=== PATIENT | female | born 1945 | race Caucasian/White ===

== ENCOUNTER 2019-03-13 16:26 | Inpatient (IN) | payer MEDICARE, MEDICAID ==
[~2019-03-13] VITALS: Ht 167.6 cm; Wt 141.1 kg
[~2019-03-13 16:26] MED LIST: AMLO10TA80 PO; ASPI-1158 PO; LISI10TA5 PO; Meclizine PO
[2019-03-13 18:03] LABS: BASOPHILS % 0.6 % (0.0-2.0); EOSINOPHILS % 4.3 % (0.0-5.0); HEMATOCRIT. 48.3 % (36.0-48.0); HEMOGLOBIN. 16.3 g/dL (12.0-16.0); MEAN CORPUSCULAR HEMOGLOBIN 30.8 pg (28.0-32.0); MEAN CORPUSCULAR VOLUME 91.2 fL (81.0-99.0); MEAN PLATELET VOLUME 9.1 fl (7.4-10.4); MONOCYTES % 4.7 % (2.0-8.0); NEUTROPHILS % 63.4 % (40.0-76.0); PLATELET 265 x1000/uL (130-400)
[2019-03-13 18:06] LABS: CHLORIDE 106 mEq/L (98-107)
[2019-03-13 20:33] LABS: CLARITY URINE CLOUDY (CLEAR); COLOR URINE DARK YELLOW (YELLOW); KETONES URINE TRACE (NEGATIVE); LEUKOCYTE ESTERASE URINE 2+ (NEGATIVE); NITRITE URINE POSITIVE (NEGATIVE); OCCULT BLOOD URINE TRACE (NEGATIVE); PROTEIN URINE 1+ (NEGATIVE)
[2019-03-14 03:00] VITALS: BP 181/127
[2019-03-14] MEDS ORDERED: GUAIFENESIN 200MG/10ML SUGAR FREE UDC PO PRN (03:30)
[2019-03-14] MEDS ORDERED: ONDANSETRON HCL 4MG/2ML INJ IV PRN (03:30)
[2019-03-14] MEDS ORDERED: ACETAMINOPHEN 325MG TABLET PO PRN (03:30)
[2019-03-14] MEDS ORDERED: DOCUSATE SODIUM 100MG CAPSULE PO PRN (03:30)
[2019-03-14] MEDS ORDERED: MAGNESIUM/ALUMINUM HYDROXIDE/SIMETHICONE 30ML UDC PO PRN (03:30)
[2019-03-14] MEDS ORDERED: LEVOFLOXACIN 500MG PREMIX 100 ML IV SCH (03:30)
[2019-03-14] MEDS: LEVOFLOXACIN 500MG PREMIX 100 ML IV SCH (05:49)
[2019-03-14 08:00] VITALS: BP 90/70
[2019-03-14] MEDS: ASPIRIN 81MG EC TABLET PO SCH (09:50)
[2019-03-14] MEDS: ENOXAPARIN 40MG/0.4ML SYR SUBCUT SCH ×2 (09:51→21:11)
[2019-03-14] MEDS: AMLODIPINE 10MG TABLET PO SCH (09:57)
[2019-03-14] MEDS ORDERED: ALBUTEROL (0.5%) 2.5MG/0.5ML NEB HHN PRN (10:00)
[2019-03-14] MEDS ORDERED: ALBUTEROL 6.7GM HFA INHALER ORI PRN (10:00)
[2019-03-14] MEDS ORDERED: SODIUM POLYSTYRENE SULFONATE 15 G/60 ML BOT PO SCH (11:00)
[2019-03-14] MEDS ORDERED: DEXTROSE 50% WATER 50ML SYRINGE IV PRN (11:15)
[2019-03-14] MEDS: CLONIDINE 0.1MG TABLET PO PRN ×2 (11:21→23:14)
[2019-03-14] MEDS: BLOOD SUGAR DIAGNOSTIC STRIP TEST SCH ×3 (11:48→21:10)
[2019-03-14] MEDS: INSULIN LISPRO 100 UNITS/ML SUBCUT SCH ×3 (11:48→21:00)
[2019-03-14 12:40] VITALS: BP 163/102
[2019-03-14 16:19] VITALS: BP 157/108
[2019-03-14 16:29] LABS: CHLORIDE 109 mEq/L (98-107)
[2019-03-14] MEDS: HYDRALAZINE HCL 10MG TABLET PO SCH ×2 (17:03→23:13)
[2019-03-14] MEDS: HYDROCODONE/ACETAMINOPHEN 5/325MG TABLET PO PRN (17:04)
[2019-03-14 20:00] VITALS: BP 150/87
[2019-03-15] VITALS: BP 155/105
[2019-03-15 04:00] VITALS: BP 136/88
[2019-03-15 05:42] LABS: BASOPHILS % 0.6 % (0.0-2.0); EOSINOPHILS % 4.3 % (0.0-5.0); HEMATOCRIT. 45.9 % (36.0-48.0); HEMOGLOBIN. 15.3 g/dL (12.0-16.0); LYMPHOCYTES % 28.1 % (20.0-50.0); MEAN CORPUSCULAR HEMOGLOBIN 30.8 pg (28.0-32.0); MEAN CORPUSCULAR VOLUME 92.4 fL (81.0-99.0); MEAN PLATELET VOLUME 8.3 fl (7.4-10.4); MONOCYTES % 8.1 % (2.0-8.0); NEUTROPHILS % 58.9 % (40.0-76.0); PLATELET 193 x1000/uL (130-400); RED BLOOD CELL COUNT 4.97 mill/uL (4.2-5.4); RED CELL DISTRIBUTION WIDTH 14.4 % (11.6-14.6)
[2019-03-15 06:15] LABS: CHLORIDE 107 mEq/L (98-107)
[2019-03-15] MEDS: HYDRALAZINE HCL 10MG TABLET PO SCH ×3 (06:16→21:38)
[2019-03-15] MEDS: CLONIDINE 0.1MG TABLET PO PRN ×2 (06:16→23:52)
[2019-03-15] MEDS: LEVOFLOXACIN 500MG PREMIX 100 ML IV SCH (06:17)
[2019-03-15] MEDS: BLOOD SUGAR DIAGNOSTIC STRIP TEST SCH ×4 (06:28→21:37)
[2019-03-15] MEDS: HYDROCODONE/ACETAMINOPHEN 5/325MG TABLET PO PRN ×2 (06:29→23:50)
[2019-03-15 06:30] LABS: LDL CHOLESTEROL 98 mg/dL (5-100)
[2019-03-15 06:32] LABS: HDL CHOLESTEROL 46 mg/dL (40-59)
[2019-03-15] MEDS: INSULIN LISPRO 100 UNITS/ML SUBCUT SCH ×4 (06:50→21:00)
[2019-03-15 08:00] VITALS: BP_SYST 110
[2019-03-15] MEDS: ASPIRIN 81MG EC TABLET PO SCH (08:32)
[2019-03-15] MEDS: ENOXAPARIN 40MG/0.4ML SYR SUBCUT SCH ×2 (08:32→21:37)
[2019-03-15] MEDS: AMLODIPINE 10MG TABLET PO SCH (08:32)
[2019-03-15 12:00] VITALS: BP 126/78
[2019-03-15 16:00] VITALS: BP 131/88
[2019-03-15 20:00] VITALS: BP 145/94
[2019-03-16] VITALS: BP 170/89
[2019-03-16 04:00] VITALS: BP 133/82
[2019-03-16] MEDS: LEVOFLOXACIN 500MG PREMIX 100 ML IV SCH (05:35)
[2019-03-16] MEDS: HYDRALAZINE HCL 10MG TABLET PO SCH ×3 (05:35→21:20)
[2019-03-16] MEDS: HYDROCODONE/ACETAMINOPHEN 5/325MG TABLET PO PRN ×2 (05:37→22:23)
[2019-03-16] MEDS: BLOOD SUGAR DIAGNOSTIC STRIP TEST SCH ×4 (06:22→20:44)
[2019-03-16] MEDS: INSULIN LISPRO 100 UNITS/ML SUBCUT SCH ×4 (06:50→21:00)
[2019-03-16] MEDS: ASPIRIN 81MG EC TABLET PO SCH (10:01)
[2019-03-16] MEDS: AMLODIPINE 10MG TABLET PO SCH (10:02)
[2019-03-16] MEDS: ENOXAPARIN 40MG/0.4ML SYR SUBCUT SCH ×2 (10:02→21:21)
[2019-03-16 12:00] VITALS: BP 147/80
[2019-03-16 16:00] VITALS: BP 163/85
[2019-03-16 16:54] VITALS: BP_SYST 112; BP_SYST 132; BP_DIAS 76; BP_DIAS 78
[2019-03-16 20:00] VITALS: BP 137/95
[2019-03-17] VITALS: BP 133/80
[2019-03-17 04:00] VITALS: BP 162/96
[2019-03-17] MEDS: BLOOD SUGAR DIAGNOSTIC STRIP TEST SCH ×2 (06:09→12:10)
[2019-03-17] MEDS: INSULIN LISPRO 100 UNITS/ML SUBCUT SCH ×2 (06:18→12:40)
[2019-03-17] MEDS: HYDRALAZINE HCL 10MG TABLET PO SCH ×2 (06:18→13:29)
[2019-03-17 08:00] VITALS: BP 150/93
[2019-03-17] MEDS: AMLODIPINE 10MG TABLET PO SCH (09:06)
[2019-03-17] MEDS: ENOXAPARIN 40MG/0.4ML SYR SUBCUT SCH (09:06)
[2019-03-17] MEDS: ASPIRIN 81MG EC TABLET PO SCH (09:06)
[2019-03-17] MEDS: HYDROCODONE/ACETAMINOPHEN 5/325MG TABLET PO PRN (09:09)
[2019-03-17] MEDS ORDERED: LEVOFLOXACIN 500MG TABLET PO SCH (11:00)
[2019-03-17 12:00] VITALS: BP 128/79
== END 2019-03-17 15:40 | disposition home health service (06) | DRG 69 ==
LOC: ER 16:26 → 8WST 22:36 → EDBEDREQTM 22:39 → EDBEDREQ 22:39 → ENRESERV 03-14 00:50
PROVIDERS: ADMIT Hospitalist; ATTEND Hospitalist
DX: G45.9 Transient cerebral ischemic attack, unspecified (principal); N39.0 Urinary tract infection, site not specified; E44.1 Mild protein-calorie malnutrition; Z68.43 Body mass index [BMI] 50.0-59.9, adult; I10 Essential (primary) hypertension; J44.9 Chronic obstructive pulmonary disease, unspecified; E87.5 Hyperkalemia; E66.01 Morbid (severe) obesity due to excess calories; E11.9 Type 2 diabetes mellitus without complications; M19.90 Unspecified osteoarthritis, unspecified site; Z79.82 Long term (current) use of aspirin; Z79.899 Other long term (current) drug therapy
CPT/HCPCS: 36415; 80048; 80061; 81003; 82962; 83036; 84484; 87077; 87186; 93005; 93970; 96365; 97162; 99285; J1650; J1956; J7040

== ENCOUNTER 2019-05-13 13:27 | Emergency (ER) | payer MEDICARE, MEDICAID ==
[~2019-05-13] VITALS: Ht 170.2 cm; Wt 135.0 kg
[2019-05-13] MEDS ORDERED: ONDANSETRON HCL 4MG/2ML INJ IV STA (14:05)
[2019-05-13] MEDS ORDERED: SODIUM CHLORIDE 0.9% 1,000 ML IV ONE (14:05)
[2019-05-13] MEDS ORDERED: KETOROLAC 30MG/ML VIAL IV STA (14:05)
[2019-05-13] MEDS ORDERED: MAGNESIUM CITRATE 300ML SOLUTION PO ONE (14:15)
[2019-05-13 14:57] LABS: BASOPHILS % 0.3 % (0.0-2.0); CHLORIDE 105 mEq/L (98-107); EOSINOPHILS % 1.3 % (0.0-5.0); HEMATOCRIT. 50.7 % (36.0-48.0); HEMOGLOBIN. 16.8 g/dL (12.0-16.0); LYMPHOCYTES % 11.8 % (20.0-50.0); MEAN CORPUSCULAR HEMOGLOBIN 30.4 pg (28.0-32.0); MEAN CORPUSCULAR VOLUME 91.7 fL (81.0-99.0); MEAN PLATELET VOLUME 7.9 fl (7.4-10.4); MONOCYTES % 5.6 % (2.0-8.0); PLATELET 218 x1000/uL (130-400); RED BLOOD CELL COUNT 5.52 mill/uL (4.2-5.4); RED CELL DISTRIBUTION WIDTH 13.5 % (11.6-14.6)
[2019-05-13] MEDS ORDERED: TAMSULOSIN HCL 0.4MG SR CAPSULE PO ONE (17:30)
[2019-05-13 18:05] VITALS: BP 173/113
[2019-05-13] MEDS ORDERED: CLONIDINE 0.1MG TABLET PO ONE (19:15)
[2019-05-13] MEDS ORDERED: AMLODIPINE 5MG TABLET PO ONE (19:15)
== END 2019-05-13 20:13 | disposition home or self-care (01) ==
LOC: ER 13:27
DX: N13.2 Hydronephrosis with renal and ureteral calculous obstruction (principal); I16.0 Hypertensive urgency; J45.909 Unspecified asthma, uncomplicated; Z86.73 Personal history of transient ischemic attack (TIA), and cerebral infarction without residual deficits; Z79.82 Long term (current) use of aspirin
CPT/HCPCS: 36415; 71045; 74176; 80053; 83690; 85025; 96374; 96375; 99284; J1885; J2405; J7030

== ENCOUNTER 2019-06-09 22:08 | Emergency (ER) | payer MEDICARE, MEDICAID ==
[~2019-06-09] VITALS: Ht 170.2 cm; Wt 127.0 kg
[2019-06-09] MEDS ORDERED: ACETAMINOPHEN WITH CODEINE 300/30MG TABLET PO ONE (23:15)
[2019-06-10 02:02] VITALS: BP 164/82
== END 2019-06-10 02:07 | disposition home or self-care (01) ==
LOC: ER 22:08
DX: S16.1XXA Strain of muscle, fascia and tendon at neck level, initial encounter (principal); M25.562 Pain in left knee; I69.351 Hemiplegia and hemiparesis following cerebral infarction affecting right dominant side; I10 Essential (primary) hypertension; M19.90 Unspecified osteoarthritis, unspecified site; J45.909 Unspecified asthma, uncomplicated; Z99.3 Dependence on wheelchair; Z79.82 Long term (current) use of aspirin; W05.0XXA Fall from non-moving wheelchair, initial encounter; Y93.89 Activity, other specified; Y92.018 Other place in single-family (private) house as the place of occurrence of the external cause
CPT/HCPCS: 73560; 99284

== ENCOUNTER 2019-11-10 01:23 | Inpatient (IN) | payer MEDICARE, MEDICAID ==
[~2019-11-10] VITALS: Ht 177.8 cm; Wt 140.2 kg
[~2019-11-10 01:23] MED LIST changes: -AMLO10TA80 PO
[2019-11-10] MEDS ORDERED: SODIUM CHLORIDE 0.9% 1,000 ML IV ONE (02:49)
[2019-11-10] MEDS ORDERED: ONDANSETRON HCL 4MG/2ML INJ IV STA (02:49)
[2019-11-10] MEDS ORDERED: PIPERACILLIN/TAZ 3.375G PREMIX 50 ML IV ONE (03:00)
[2019-11-10] MEDS ORDERED: VANCOMYCIN 1 G PREMIX 200 ML IV ONE (03:00)
[2019-11-10 03:10] LABS: HEMATOCRIT. 46.6 % (36.0-48.0); HEMOGLOBIN. 15.5 g/dL (12.0-16.0); MEAN CORPUSCULAR HEMOGLOBIN 30.7 pg (28.0-32.0); MEAN CORPUSCULAR VOLUME 92.4 fL (81.0-99.0); MEAN PLATELET VOLUME 9.3 fl (7.4-10.4); PLATELET 248 x1000/uL (130-400); RED BLOOD CELL COUNT 5.04 mill/uL (4.2-5.4)
[2019-11-10 03:13] LABS: CHLORIDE 98 mEq/L (98-107)
[2019-11-10 03:17] LABS: INR 1.1; PROTHROMBIN TIME 11.4 sec (9.6-11.0)
[2019-11-10 03:38] LABS: CLARITY URINE CLOUDY (CLEAR); COLOR URINE ORANGE (YELLOW); KETONES URINE TRACE (NEGATIVE); LEUKOCYTE ESTERASE URINE 1+ (NEGATIVE); NITRITE URINE NEGATIVE (NEGATIVE); OCCULT BLOOD URINE NEGATIVE (NEGATIVE); PROTEIN URINE NEGATIVE (NEGATIVE); SPECIFIC GRAVITY URINE 1.028 (1.005-1.030); UROBILINOGEN URINE 0.2 E.U./dL (0.2-1.0)
[2019-11-10] MEDS ORDERED: SODIUM CHLORIDE 0.9% 1,000 ML IV NR (03:38)
[2019-11-10] MEDS ORDERED: CALCIUM CHLORIDE 1GM/10ML SYR IV NR (03:45)
[2019-11-10] MEDS ORDERED: INSULIN REGULAR (HUMULIN R) 300UNITS/3ML IV NR (03:45)
[2019-11-10] MEDS ORDERED: SODIUM BICARBONATE 8.4% 1 MEQ/ML 50ML SYR IV NR (03:45)
[2019-11-10] MEDS ORDERED: DEXTROSE 50% WATER 50ML SYRINGE IV ONE (03:45)
[2019-11-10 04:46] LABS: PLATELET ESTIMATE NORMAL
[2019-11-10] MEDS ORDERED: DIGOXIN 500MCG/2ML AMP IV SCH (06:30)
[2019-11-10] MEDS ORDERED: DEXT 5%/0.45% NACL 1000ML 1,000 ML IV SCH (07:00)
[2019-11-10] MEDS ORDERED: CEFTRIAXONE 1 G PREMIX 50 ML IV SCH (08:00)
[2019-11-10] MEDS ORDERED: NOREPINEPHRINE 4 MG in DEXT 5% WATER 246 ML IV PRN (08:00)
[2019-11-10] MEDS: NOREPINEPHRINE 4MG/250ML PMX IV PRN ×3 (08:29→18:01)
[2019-11-10] MEDS ORDERED: AZITHROMYCIN 500 MG in DEXT 5% WATER 250 ML IV SCH (09:00)
[2019-11-10] MEDS ORDERED: ENOXAPARIN 40MG/0.4ML SYR SUBCUT SCH (09:00)
[2019-11-10] MEDS ORDERED: DILTIAZEM HCL 125 MG in DEXT 5% WATER 100 ML IV PRN ×2 (12:30→22:00)
[2019-11-10 14:00] LABS: CHLORIDE 104 mEq/L (98-107)
[2019-11-10] MEDS: SODIUM BICARBONATE 100 MEQ in SODIUM CHLORIDE 0.45% 1,000 ML IV SCH (15:45)
[2019-11-10] MEDS: LORAZEPAM 2MG/ML CPJ IV PRN (19:16)
[2019-11-10 23:39] LABS: CREATINE KINASE MB FRACTION 21.8 ng/mL (0.5-3.6)
[2019-11-10 23:53] LABS: CREATINE KINASE 2603 IU/L (26-192)
[2019-11-11] VITALS (48 sets, daily range): BP systolic 61–155; BP diastolic 29–103
[2019-11-11] MEDS: SODIUM BICARBONATE 100 MEQ in SODIUM CHLORIDE 0.45% 1,000 ML IV SCH ×2 (02:00→12:04)
[2019-11-11] MEDS: LORAZEPAM 2MG/ML CPJ IV PRN ×2 (02:22→21:37)
[2019-11-11 04:54] LABS: HEMATOCRIT. 41.7 % (36.0-48.0); HEMOGLOBIN. 13.8 g/dL (12.0-16.0); MEAN CORPUSCULAR HEMOGLOBIN 30.3 pg (28.0-32.0); MEAN CORPUSCULAR VOLUME 91.6 fL (81.0-99.0); MEAN PLATELET VOLUME 8.3 fl (7.4-10.4); PLATELET 208 x1000/uL (130-400); RED BLOOD CELL COUNT 4.55 mill/uL (4.2-5.4); RED CELL DISTRIBUTION WIDTH 14.5 % (11.6-14.6)
[2019-11-11 04:59] LABS: CHLORIDE 103 mEq/L (98-107)
[2019-11-11] MEDS ORDERED: SODIUM POLYSTYRENE SULFONATE 15 G/60 ML BOT PR SCH (06:00)
[2019-11-11 06:51] LABS: NUCLEATED RED BLOOD CELLS 1 /100 WBC; PLATELET ESTIMATE NORMAL
[2019-11-11] MEDS ORDERED: INSULIN REGULAR (HUMULIN R) 300UNITS/3ML IV NR (06:57)
[2019-11-11] MEDS ORDERED: DEXTROSE 50% WATER 50ML SYRINGE IV NR (06:57)
[2019-11-11] MEDS ORDERED: SODIUM BICARBONATE 8.4% 1 MEQ/ML 50ML SYR IV NR (06:57)
[2019-11-11 10:01] LABS: BG BASE EXCESS -7.5 mmol/L (-2.0-2.0); BG CARBOXYHEMOGLOBIN 0.4 % (0.5-1.5); BG DEOXYHEMOGLOBIN 4.2 % (0.0-5.0); BG FRACTION INSPIRED OXYGEN 99.9; BG METHEMOGLOBIN 0.2 % (0.0-1.5); BG OXYGEN SATURATION 95.8 % (92.0-98.5); BG OXYHEMOGLOBIN 95.2 % (94.0-97.0); BG PH 7.343 (7.350-7.450); BG SAMPLE SITE RIGHT RADIAL; BG TOTAL HEMOGLOBIN 14.1 g/dL (12.0-18.0); BG VENT MODE MASK - NRB
[2019-11-11] MEDS ORDERED: PHENYLEPHRINE 20 MG in DEXT 5% WATER 248 ML IV PRN (11:15)
[2019-11-11] MEDS: CEFTRIAXONE 1 G PREMIX 50 ML IV SCH (11:40)
[2019-11-11] MEDS: AZITHROMYCIN 500 MG in DEXT 5% WATER 250 ML IV SCH (11:40)
[2019-11-11] MEDS ORDERED: IPRATROPIUM/ALBUTEROL 0.5-3(2.5)MG/3ML NEB HHN PRN (11:45)
[2019-11-11] MEDS ORDERED: NOREPINEPHRINE 4 MG in DEXT 5% WATER 246 ML IV PRN (12:00)
[2019-11-11] MEDS: PHENYLEPHRINE 40 MG in DEXT 5% WATER 496 ML IV PRN ×2 (15:00→20:14)
[2019-11-11] MEDS ORDERED: NOREPINEPHRINE 8 MG in DEXT 5% WATER 492 ML IV PRN (15:45)
[2019-11-11] MEDS ORDERED: VANCOMYCIN 1500MG in DEXTROSE 5% WATER 250ML IV NR (17:00)
[2019-11-11] MEDS: NOREPINEPHRINE 16MG in DEXT 5% WATER 500ML (DOUBLE CONC) IV PRN (17:00)
[2019-11-11] MEDS ORDERED: ENOXAPARIN 150MG/ML SYR SUBCUT SCH (20:00)
[2019-11-11] MEDS: IPRATROPIUM BROMIDE (0.02%) 0.5MG/2.5ML NEB HHN SCH (20:42)
[2019-11-11] MEDS ORDERED: SODIUM POLYSTYRENE SULFONATE 15 G/60 ML BOT PO NR (21:00)
[2019-11-12] VITALS (74 sets, daily range): BP systolic 79–155; BP diastolic 34–123
[2019-11-12] MEDS: SODIUM BICARBONATE 100 MEQ in SODIUM CHLORIDE 0.45% 1,000 ML IV SCH ×2 (02:12→09:15)
[2019-11-12] MEDS: NOREPINEPHRINE 16MG in DEXT 5% WATER 500ML (DOUBLE CONC) IV PRN (02:13)
[2019-11-12] MEDS: PHENYLEPHRINE 40 MG in DEXT 5% WATER 496 ML IV PRN (02:14)
[2019-11-12] MEDS: IPRATROPIUM BROMIDE (0.02%) 0.5MG/2.5ML NEB HHN SCH ×4 (02:20→20:16)
[2019-11-12] MEDS ORDERED: NOREPINEPHRINE 32 MG in DEXT 5% WATER 468 ML IV PRN (02:30)
[2019-11-12] MEDS ORDERED: PHENYLEPHRINE 80 MG in DEXT 5% WATER 492 ML IV PRN (02:30)
[2019-11-12 07:00] LABS: HEMATOCRIT. 40.4 % (36.0-48.0); HEMOGLOBIN. 13.8 g/dL (12.0-16.0); MEAN CORPUSCULAR HEMOGLOBIN 30.7 pg (28.0-32.0); MEAN PLATELET VOLUME 8.2 fl (7.4-10.4); PLATELET 195 x1000/uL (130-400); RED BLOOD CELL COUNT 4.49 mill/uL (4.2-5.4); RED CELL DISTRIBUTION WIDTH 14.6 % (11.6-14.6)
[2019-11-12 08:53] LABS: BG BASE EXCESS 0.6 mmol/L (-2.0-2.0); BG CARBOXYHEMOGLOBIN 0.4 % (0.5-1.5); BG DEOXYHEMOGLOBIN 16.2 % (0.0-5.0); BG FRACTION INSPIRED OXYGEN 34; BG HCO3 ACT 23.5 mmol/L (22.0-26.0); BG METHEMOGLOBIN 0.2 % (0.0-1.5); BG OXYGEN SATURATION 83.7 % (92.0-98.5); BG OXYHEMOGLOBIN 83.2 % (94.0-97.0); BG PH 7.471 (7.350-7.450); BG PO2 46.1 mmHg (75.0-100.0); BG SAMPLE SITE RIGHT RADIAL; BG TOTAL HEMOGLOBIN 13.9 g/dL (12.0-18.0); BG VENT MODE NASAL CANNULA
[2019-11-12 08:55] LABS: PLATELET ESTIMATE NORMAL
[2019-11-12] MEDS: PANTOPRAZOLE SODIUM 40 MG/VIAL IV SCH (09:03)
[2019-11-12] MEDS: CEFTRIAXONE 1 G PREMIX 50 ML IV SCH (09:03)
[2019-11-12] MEDS: AZITHROMYCIN 500 MG in DEXT 5% WATER 250 ML IV SCH (09:15)
[2019-11-12 10:27] LABS: BG BASE EXCESS 1.9 mmol/L (-2.0-2.0); BG CARBOXYHEMOGLOBIN 0.3 % (0.5-1.5); BG DEOXYHEMOGLOBIN 13.2 % (0.0-5.0); BG FRACTION INSPIRED OXYGEN 34; BG HCO3 ACT 25.3 mmol/L (22.0-26.0); BG METHEMOGLOBIN 0.3 % (0.0-1.5); BG OXYGEN SATURATION 86.7 % (92.0-98.5); BG OXYHEMOGLOBIN 86.2 % (94.0-97.0); BG PCO2 35.9 mmHg (35.0-45.0); BG PH 7.466 (7.350-7.450); BG SAMPLE SITE RIGHT RADIAL; BG TOTAL HEMOGLOBIN 13.7 g/dL (12.0-18.0); BG VENT MODE NASAL CANNULA
[2019-11-12] MEDS: DEXT 5%/0.9% NACL 1,000 ML IV SCH (13:56)
[2019-11-12] MEDS: VANCOMYCIN 1 G PREMIX 200 ML IV SCH (13:56)
[2019-11-12] MEDS: CEFEPIME 1,000 MG in DEXTROSE 5% WATER 50 ML IV SCH (15:44)
[2019-11-12] MEDS: METRONIDAZOLE 500 MG PREMIX 100 ML IV SCH (17:05)
[2019-11-12] MEDS: ENOXAPARIN 150MG/ML SYR SUBCUT SCH (17:56)
[2019-11-13] VITALS (89 sets, daily range): BP systolic 41–193; BP diastolic 20–134
[2019-11-13] MEDS: IPRATROPIUM BROMIDE (0.02%) 0.5MG/2.5ML NEB HHN SCH ×4 (01:12→20:24)
[2019-11-13] MEDS: DEXT 5%/0.9% NACL 1,000 ML IV SCH ×2 (03:02→16:54)
[2019-11-13] MEDS: CEFEPIME 1,000 MG in DEXTROSE 5% WATER 50 ML IV SCH ×2 (03:02→16:54)
[2019-11-13] MEDS: METRONIDAZOLE 500 MG PREMIX 100 ML IV SCH ×2 (04:01→16:54)
[2019-11-13] MEDS: ENOXAPARIN 150MG/ML SYR SUBCUT SCH ×2 (05:31→16:54)
[2019-11-13 06:01] LABS: HEMATOCRIT. 40.1 % (36.0-48.0); HEMOGLOBIN. 13.1 g/dL (12.0-16.0); MEAN CORPUSCULAR HEMOGLOBIN 29.9 pg (28.0-32.0); MEAN CORPUSCULAR VOLUME 91.5 fL (81.0-99.0); MEAN PLATELET VOLUME 8.1 fl (7.4-10.4); PLATELET 185 x1000/uL (130-400); RED BLOOD CELL COUNT 4.39 mill/uL (4.2-5.4); RED CELL DISTRIBUTION WIDTH 14.5 % (11.6-14.6)
[2019-11-13] MEDS: VANCOMYCIN 1 G PREMIX 200 ML IV SCH (06:17)
[2019-11-13 08:22] LABS: PLATELET ESTIMATE NORMAL
[2019-11-13] MEDS: PANTOPRAZOLE SODIUM 40 MG/VIAL IV SCH (08:53)
[2019-11-13] MEDS: METOPROLOL TARTRATE 25MG TABLET PO SCH (20:47)
[2019-11-14] VITALS (38 sets, daily range): BP systolic 84–125; BP diastolic 16–71
[2019-11-14] MEDS: IPRATROPIUM BROMIDE (0.02%) 0.5MG/2.5ML NEB HHN SCH ×4 (00:54→21:31)
[2019-11-14] MEDS: CEFEPIME 1,000 MG in DEXTROSE 5% WATER 50 ML IV SCH ×2 (03:19→17:14)
[2019-11-14] MEDS: DEXT 5%/0.9% NACL 1,000 ML IV SCH (05:03)
[2019-11-14] MEDS: METRONIDAZOLE 500 MG PREMIX 100 ML IV SCH ×2 (05:03→17:49)
[2019-11-14] MEDS: ENOXAPARIN 150MG/ML SYR SUBCUT SCH ×2 (05:04→18:00)
[2019-11-14 06:59] LABS: HEMATOCRIT. 38.1 % (36.0-48.0); HEMOGLOBIN. 12.5 g/dL (12.0-16.0); MEAN CORPUSCULAR HEMOGLOBIN 30.2 pg (28.0-32.0); MEAN CORPUSCULAR VOLUME 92.3 fL (81.0-99.0); MEAN PLATELET VOLUME 7.9 fl (7.4-10.4); PLATELET 142 x1000/uL (130-400); RED BLOOD CELL COUNT 4.13 mill/uL (4.2-5.4); RED CELL DISTRIBUTION WIDTH 14.5 % (11.6-14.6)
[2019-11-14 07:08] LABS: CHLORIDE 110 mEq/L (98-107)
[2019-11-14] MEDS: METOPROLOL TARTRATE 25MG TABLET PO SCH ×2 (08:32→21:00)
[2019-11-14] MEDS: PANTOPRAZOLE SODIUM 40 MG/VIAL IV SCH (08:32)
[2019-11-14 09:26] LABS: PLATELET ESTIMATE NORMAL
[2019-11-14] MEDS: VANCOMYCIN 1 G PREMIX 200 ML IV SCH (14:58)
[2019-11-14] MEDS ORDERED: VANCOMYCIN 750 MG PREMIX 150 ML IV SCH (18:00)
[2019-11-15] VITALS (15 sets, daily range): BP systolic 93–132; BP diastolic 51–71
[2019-11-15] MEDS: DEXT 5%/0.9% NACL 1,000 ML IV SCH (01:58)
[2019-11-15] MEDS: IPRATROPIUM BROMIDE (0.02%) 0.5MG/2.5ML NEB HHN SCH ×4 (03:25→20:21)
[2019-11-15] MEDS: CEFEPIME 1,000 MG in DEXTROSE 5% WATER 50 ML IV SCH ×2 (05:50→17:10)
[2019-11-15] MEDS: METRONIDAZOLE 500 MG PREMIX 100 ML IV SCH ×2 (06:22→17:48)
[2019-11-15] MEDS: ENOXAPARIN 150MG/ML SYR SUBCUT SCH ×2 (06:22→17:47)
[2019-11-15] MEDS: METOPROLOL TARTRATE 25MG TABLET PO SCH ×3 (08:58→21:00)
[2019-11-15] MEDS: PANTOPRAZOLE SODIUM 40 MG/VIAL IV SCH (08:58)
[2019-11-15 09:43] LABS: HEMATOCRIT. 37.2 % (36.0-48.0); HEMOGLOBIN. 12.1 g/dL (12.0-16.0); MEAN CORPUSCULAR HEMOGLOBIN 30.1 pg (28.0-32.0); MEAN CORPUSCULAR VOLUME 92.5 fL (81.0-99.0); PLATELET 139 x1000/uL (130-400); RED BLOOD CELL COUNT 4.02 mill/uL (4.2-5.4); RED CELL DISTRIBUTION WIDTH 14.3 % (11.6-14.6)
[2019-11-15] MEDS: FUROSEMIDE 40MG/4ML VIAL IVP SCH ×2 (09:46→17:47)
[2019-11-15 09:52] LABS: CHLORIDE 113 mEq/L (98-107)
[2019-11-15 09:59] LABS: PHOSPHORUS 2.1 mg/dL (2.5-4.9)
[2019-11-15] MEDS ORDERED: FLUCONAZOLE 200MG/100ML PREMIX IV ONE (10:15)
[2019-11-15 10:53] LABS: PLATELET ESTIMATE NORMAL
[2019-11-15] MEDS ORDERED: FLUCONAZOLE 200 MG/100ML BAG 100 ML IV SCH (11:00)
[2019-11-15 13:15] LABS: BG BASE EXCESS -2.1 mmol/L (-2.0-2.0); BG CARBOXYHEMOGLOBIN 0.3 % (0.5-1.5); BG DEOXYHEMOGLOBIN 2.6 % (0.0-5.0); BG FRACTION INSPIRED OXYGEN 100; BG HCO3 ACT 21.5 mmol/L (22.0-26.0); BG METHEMOGLOBIN 0.2 % (0.0-1.5); BG OXYGEN SATURATION 97.4 % (92.0-98.5); BG OXYHEMOGLOBIN 96.9 % (94.0-97.0); BG PCO2 33.3 mmHg (35.0-45.0); BG PH 7.428 (7.350-7.450); BG PO2 99.3 mmHg (75.0-100.0); BG SAMPLE SITE RIGHT RADIAL; BG TOTAL HEMOGLOBIN 13.1 g/dL (12.0-18.0); BG VENT MODE MASK - NRB
[2019-11-15] MEDS: VANCOMYCIN 1 G PREMIX 200 ML IV SCH (15:23)
[2019-11-16] VITALS (15 sets, daily range): BP systolic 92–141; BP diastolic 38–75
[2019-11-16] MEDS: IPRATROPIUM BROMIDE (0.02%) 0.5MG/2.5ML NEB HHN SCH ×4 (02:06→20:09)
[2019-11-16] MEDS: CEFEPIME 1,000 MG in DEXTROSE 5% WATER 50 ML IV SCH ×2 (03:40→17:27)
[2019-11-16] MEDS: DEXT 5%/0.9% NACL 1,000 ML IV SCH (03:48)
[2019-11-16] MEDS: METRONIDAZOLE 500 MG PREMIX 100 ML IV SCH ×2 (05:07→18:27)
[2019-11-16] MEDS: ENOXAPARIN 150MG/ML SYR SUBCUT SCH ×2 (05:14→18:29)
[2019-11-16 06:49] LABS: CHLORIDE 116 mEq/L (98-107)
[2019-11-16] MEDS: PANTOPRAZOLE SODIUM 40 MG/VIAL IV SCH (09:05)
[2019-11-16] MEDS: FUROSEMIDE 40MG/4ML VIAL IVP SCH ×2 (09:05→17:48)
[2019-11-16] MEDS ORDERED: DEXTROSE 5% WATER 1,000 ML IV SCH (09:30)
[2019-11-16] MEDS ORDERED: POTASSIUM CHLORIDE 20MEQ/PACKET PO NR (09:30)
[2019-11-16] MEDS: METOPROLOL TARTRATE 25MG TABLET PO SCH ×2 (09:56→21:00)
[2019-11-16 12:06] LABS: BASOPHILS % 0.4 % (0.0-2.0); EOSINOPHILS % 1.3 % (0.0-5.0); HEMATOCRIT. 37.6 % (36.0-48.0); HEMOGLOBIN. 12.3 g/dL (12.0-16.0); LYMPHOCYTES % 8.1 % (20.0-50.0); MEAN CORPUSCULAR HEMOGLOBIN 30.5 pg (28.0-32.0); MEAN CORPUSCULAR VOLUME 92.9 fL (81.0-99.0); MEAN PLATELET VOLUME 8.1 fl (7.4-10.4); MONOCYTES % 6.2 % (2.0-8.0); PLATELET 159 x1000/uL (130-400); RED BLOOD CELL COUNT 4.05 mill/uL (4.2-5.4); RED CELL DISTRIBUTION WIDTH 14.8 % (11.6-14.6)
[2019-11-16] MEDS: VANCOMYCIN 1 G PREMIX 200 ML IV SCH (15:03)
[2019-11-16] MEDS: FLUCONAZOLE 100MG TABLET PO SCH (15:05)
[2019-11-16 16:28] LABS: CHLORIDE 117 mEq/L (98-107)
[2019-11-16 18:02] LABS: CLARITY URINE CLEAR (CLEAR); COLOR URINE DARK YELLOW (YELLOW); KETONES URINE TRACE (NEGATIVE); LEUKOCYTE ESTERASE URINE 1+ (NEGATIVE); NITRITE URINE NEGATIVE (NEGATIVE); OCCULT BLOOD URINE NEGATIVE (NEGATIVE); PROTEIN URINE NEGATIVE (NEGATIVE); SPECIFIC GRAVITY URINE 1.021 (1.005-1.030); UROBILINOGEN URINE 0.2 E.U./dL (0.2-1.0)
[2019-11-17] VITALS (15 sets, daily range): BP systolic 87–135; BP diastolic 47–97
[2019-11-17] MEDS: IPRATROPIUM BROMIDE (0.02%) 0.5MG/2.5ML NEB HHN SCH ×4 (01:29→20:25)
[2019-11-17] MEDS: CEFEPIME 1,000 MG in DEXTROSE 5% WATER 50 ML IV SCH ×2 (04:15→16:15)
[2019-11-17] MEDS: METRONIDAZOLE 500 MG PREMIX 100 ML IV SCH ×2 (05:09→17:55)
[2019-11-17] MEDS: FUROSEMIDE 40MG/4ML VIAL IVP SCH (06:27)
[2019-11-17] MEDS: ENOXAPARIN 150MG/ML SYR SUBCUT SCH ×2 (06:29→17:59)
[2019-11-17 06:58] LABS: BASOPHILS % 0.3 % (0.0-2.0); EOSINOPHILS % 1.9 % (0.0-5.0); HEMATOCRIT. 34.3 % (36.0-48.0); HEMOGLOBIN. 11.2 g/dL (12.0-16.0); LYMPHOCYTES % 9.5 % (20.0-50.0); MEAN CORPUSCULAR HEMOGLOBIN 30.1 pg (28.0-32.0); MEAN CORPUSCULAR VOLUME 91.9 fL (81.0-99.0); MEAN PLATELET VOLUME 8.4 fl (7.4-10.4); MONOCYTES % 7.5 % (2.0-8.0); NEUTROPHILS % 80.8 % (40.0-76.0); PLATELET 156 x1000/uL (130-400); RED BLOOD CELL COUNT 3.73 mill/uL (4.2-5.4); RED CELL DISTRIBUTION WIDTH 14.6 % (11.6-14.6)
[2019-11-17] MEDS: FLUCONAZOLE 100MG TABLET PO SCH (08:45)
[2019-11-17] MEDS: FAMOTIDINE 20MG/2ML VIAL IV SCH ×2 (08:45→20:59)
[2019-11-17] MEDS: METOPROLOL TARTRATE 25MG TABLET PO SCH ×2 (09:00→21:00)
[2019-11-17] MEDS ORDERED: POTASSIUM CHLORIDE 20MEQ/PACKET PO NR (10:15)
[2019-11-17] MEDS: ACETAMINOPHEN 325MG TABLET PO PRN (12:54)
[2019-11-17] MEDS: VANCOMYCIN 1 G PREMIX 200 ML IV SCH (13:00)
[2019-11-17] MEDS ORDERED: FUROSEMIDE 40MG/4ML VIAL IVP SCH (17:00)
[2019-11-18] VITALS (20 sets, daily range): BP systolic 58–147; BP diastolic 14–78
[2019-11-18] MEDS: ACETAMINOPHEN 325MG TABLET PO PRN (00:38)
[2019-11-18] MEDS: IPRATROPIUM BROMIDE (0.02%) 0.5MG/2.5ML NEB HHN SCH (02:02)
[2019-11-18] MEDS: CEFEPIME 1,000 MG in DEXTROSE 5% WATER 50 ML IV SCH (03:06)
[2019-11-18] MEDS ORDERED: SODIUM CHLORIDE 0.9% 500 ML IV STA (04:37)
[2019-11-18] MEDS: METRONIDAZOLE 500 MG PREMIX 100 ML IV SCH (05:11)
[2019-11-18] MEDS: ENOXAPARIN 150MG/ML SYR SUBCUT SCH ×2 (06:00→06:35)
[2019-11-18] MEDS ORDERED: ONDANSETRON HCL 4MG/2ML INJ IV PRN (06:15)
[2019-11-18 07:13] LABS: HEMOGLOBIN. 8.2 g/dL (12.0-16.0); MEAN CORPUSCULAR HEMOGLOBIN 29.9 pg (28.0-32.0); MEAN CORPUSCULAR VOLUME 94.7 fL (81.0-99.0); PLATELET 153 x1000/uL (130-400); RED BLOOD CELL COUNT 2.75 mill/uL (4.2-5.4); RED CELL DISTRIBUTION WIDTH 14.8 % (11.6-14.6)
[2019-11-18] MEDS ORDERED: NOREPINEPHRINE 4MG/250ML PMX 250 ML IV PRN (07:30)
[2019-11-18] MEDS ORDERED: PHENYLEPHRINE 80 MG in DEXT 5% WATER 492 ML IV PRN (07:45)
[2019-11-18] MEDS ORDERED: LORAZEPAM 2MG/ML CPJ IV PRN (08:00)
[2019-11-18] MEDS ORDERED: MORPHINE SULFATE 2 MG/ML CPJ (NOT FOR IM USE) IV PRN (08:00)
[2019-11-18] MEDS ORDERED: FUROSEMIDE 40MG/4ML VIAL IVP SCH (09:00)
[2019-11-18] MEDS ORDERED: MIDODRINE HCL 2.5MG TABLET PO SCH (09:00)
[2019-11-18] MEDS ORDERED: NOREPINEPHRINE 32 MG in DEXT 5% WATER 468 ML IV PRN (10:00)
[2019-11-18 13:44] LABS: PLATELET ESTIMATE NORMAL
== END 2019-11-18 08:23 | disposition expired | DRG 871 ==
LOC: ER 01:23 → MICUSO 04:28 → EDBEDREQTM 06:24 → EDBEDREQSVC 06:24 → CVICU 11-11 08:06 → 3WST 11-14 16:10 → CVICU 11-18 07:19
PROVIDERS: ADMIT Hospitalist; ATTEND Hospitalist
PROC: 02H633Z Insertion of Infusion Device into Right Atrium, Percutaneous Approach (ICD-10-PCS; principal; 2019-11-10)
PROC: B548ZZA Ultrasonography of Superior Vena Cava, Guidance (ICD-10-PCS; 2019-11-10)
DX: A41.9 Sepsis, unspecified organism (principal); J96.01 Acute respiratory failure with hypoxia; E43 Unspecified severe protein-calorie malnutrition; R65.21 Severe sepsis with septic shock; G93.41 Metabolic encephalopathy; N17.0 Acute kidney failure with tubular necrosis; J18.9 Pneumonia, unspecified organism; L03.115 Cellulitis of right lower limb; E87.2 Acidosis; J98.11 Atelectasis; N39.0 Urinary tract infection, site not specified; Z68.41 Body mass index [BMI] 40.0-44.9, adult; I82.401 Acute embolism and thrombosis of unspecified deep veins of right lower extremity; M19.90 Unspecified osteoarthritis, unspecified site; I27.21 Secondary pulmonary arterial hypertension; E87.5 Hyperkalemia; E78.5 Hyperlipidemia, unspecified; I48.0 Paroxysmal atrial fibrillation; M60.872 Other myositis, left ankle and foot; E66.9 Obesity, unspecified; Z66 Do not resuscitate; I07.1 Rheumatic tricuspid insufficiency; R74.0 Nonspecific elevation of levels of transaminase and lactic acid dehydrogenase [LDH]; L89.326 Pressure-induced deep tissue damage of left buttock; F20.9 Schizophrenia, unspecified; R23.0 Cyanosis; I11.0 Hypertensive heart disease with heart failure; I50.9 Heart failure, unspecified; Z79.82 Long term (current) use of aspirin; Z03.818 Encounter for observation for suspected exposure to other biological agents ruled out; Z79.899 Other long term (current) drug therapy
CPT/HCPCS: 36415; 36600; 71045; 76881; 78580; 80048; 80053; 80202; 81003; 82040; 82375; 82550; 82553; 82805; 82962; 83605; 83735; 84100; 84132; 84134; 84145; 84484; 85025; 87106; 93005; 93922; 93970; 94640; 96365; 97162; 99285; C9113; J0456; J0692; J0696; J1160; J1450; J1650; J1815; J1940; J2060; J2270; J2370; J2405; J2543; J3370; J3490; J7030; J7042; J7060; C9803-CS; U0003-CS